=== PATIENT | female | born 1980 | race Caucasian/White ===

== ENCOUNTER 2017-01-16 19:38 | Emergency (ER) | payer MEDICAID ==
[~2017-01-16] VITALS: Ht 162.6 cm; Wt 88.0 kg
[2017-01-16 19:52] VITALS: Ht 162.6 cm; Wt 88.0 kg
[2017-01-16] MEDS ORDERED: CARB15DR48 BOTH EARS (21:17)
--- NOTE | 2017-01-16 21:39 | ERD ---
ER Documentation Chief Complaint Date/Time DATE: 01/16/17 TIME: 21:35 Chief Complaint right ear pain x 3 days HPI This is a 36-year-old female presents to the ER with right ear pain for the last 3 days. Patient states she has a past history of cerumen impaction and she usually gets her ear is irrigated. Patient has not had any ear irrigation for the last 6 months. She denies any ear pain. She denies any fevers or chills. She does admit to muffled hearing however denies any tinnitus. She denies any dizziness. She denies any sore throat or cough or cold symptoms. ROS 12 point review of systems was done, all negative except per HPI. Medications Home Meds Active Scripts Carbamide Peroxide* (Debrox*) 6.5% - 15 Ml Drops, 10 DROP BOTH EARS BID for 7 Days, BOTTLE Prov:SANFORD LACKEY Zoya 01/16/17 Allergies Allergies: Coded Allergies: No Known Allergy (Unverified , 01/16/17) Physical Exam Vitals Vital Signs Date Time Temp Pulse Resp B/P Pulse Ox O2 Delivery O2 Flow Rate FiO2 01/16/17 19:52 98.3 91 20 152/69 100 Physical Exam GENERAL: The patient is well-developed, well-nourished, in no acute distress. NECK: Cervical spine is non tender with no step off. Supple, no nuchal rigidity HEENT: Atraumatic. Pupils equal, round and reactive to light. Extraocular muscles are grossly intact. Bilateral cerumen impaction. No tonsillar erythema. RESPIRATORY: Clear to auscultation bilaterally. There are no rales, wheezes or rhonchi. HEART: Regular rate and rhythm. No murmurs, clicks, rubs or gallops. EXTREMITIES: No clubbing or cyanosis. Full range of motion. Grossly neurovascularly intact. NEUROLOGIC: Alert and oriented. Cranial nerves II through XII are intact. SKIN: There is no rash. The skin is warm and dry. Procedures/MDM This is a 36-year-old female presents to the ER with right ear pain that started 3 days ago. Patient does have cerumen impaction of the right and left ear. At this otitis media is low. Patient does not have any fevers or chills. She does not have any cough or cold symptoms. Patient will be sent home with Debrox. She was given a list of [facility] centers where she can get an ear irrigation. Patient is afebrile and actually well-appearing. She is to follow-up with her primary care doctor within 1-2 days or return to ER sooner symptoms worsen. My medical decision making was shared with patient she understands and agrees with plan. Departure Diagnosis: Primary Impression: Cerumen impaction Condition: Stable Patient Instructions: Cerumen Impaction, Home Care [facility] Usted se maradiaga hecho un examen mdico de control que le indica que no est en jak condicin que requiera tratamiento urgente en el Departamento de Emergencia. Un estudio ms profundo y el tratamiento de javier condicin pueden esperar sin ningn riesgo hasta que usted sea atendida/o en el consultorio de javier mdico o jak cl yudelka. Es responsabilidad suya arreglar jak andres para el seguimiento del linnea. MANEJO DE CONDICIONES NO URGENTES EN EL FUTURO 1) Si usted tiene un mdico de atencin primaria: Usted debera llamar a jaiver mdico de atencin primaria antes de venir al departamento de emergencia. Despus de las horas de consultorio, javier doctor o javier asociado/a est disponible por telfono. El mdico o enfermero de estephania en el servicio telefnico puede asesorarle por malcom medio para atender el problema, o linnea contrario se puede programar jak andres. 2) Si usted no tiene un mdico de atencin primaria: Llame al mdico o clnica de referencia que aparece abajo amelia las horas de consultorio para hacer jak andres para que le vean. CLINICAS: [facility] [phone] [address] [facility] [phone] [address] [facility] [phone] [address] [facility] [phone] [id number] [place] [id number] [phone] [facility]. [phone] [address] Additional Instructions: Llame al doctor MAANA y rosa jak ANDRES PARA DENTRO DE 1-2 ANDREWS.Dgale a la secretaria que nosotros le instruimos hacer esta andres.Avise o llame si javier condicin se empeora antes de la andres. Regresa aqui si peor o no mejor. SANFORD LACKEY Jan 16, 2017 21:39
== END 2017-01-16 21:18 | disposition home or self-care (01) ==
LOC: E/R 19:38
DX: H61.23 Impacted cerumen, bilateral (principal)
CPT/HCPCS: 99283